=== PATIENT | male | born 1950 | race Caucasian/White ===

== ENCOUNTER 2016-12-23 13:32 | Emergency (ER) | payer OTHER ==
[~2016-12-23 13:32] MED LIST: ADVAIR 500-501 EACH IH; ALBUTEROL HFA6.7 GM IH; ALBUTEROL HFA6.7 GM INH; ASPIRIN EC81 MG PO; CYCLOBENZAPRINE10 MG PO; LEVAQUIN750 MG PO; LORTAB 7.5-3251 EACH PO; MEDROL4 M1 PO; NEURONTIN600 MG PO; PREDNISONE10 MG PO; SPIRIVA18 MCG IH; SPIRIVA18 MCG INH; SYMBICORT 16010.2 GM INH; TESSALON PERLE100 MG PO; ZITHROMAX500 MG PO
== END 2016-12-23 14:43 | disposition home or self-care (01) ==
LOC: ER 13:32
DX: G51.0 Bell's palsy (principal); I10 Essential (primary) hypertension; J44.9 Chronic obstructive pulmonary disease, unspecified; I25.10 Atherosclerotic heart disease of native coronary artery without angina pectoris; F17.200 Nicotine dependence, unspecified, uncomplicated; Z79.02 Long term (current) use of antithrombotics/antiplatelets; Z79.899 Other long term (current) drug therapy
CPT/HCPCS: 36415; 96360